=== PATIENT | male | born 1950 | race Caucasian/White ===

== ENCOUNTER 2023-12-28 05:59 | Day surgery (SDC) | payer MEDICARE, OTHER, SELFPAY ==
[2023-12-28] VITALS (11 sets, daily range): BP systolic 123–140; BP diastolic 59–72; BMI 26.3
[2023-12-28] MEDS: NSS 242 ML IV (06:45)
--- NOTE | 2023-12-28 07:16 | ITS.CL.CATH ---
[employer] - Catheterization
Cardiac Catheterization
Procedure Report:
CARDIAC CATHETERIZATION REPORT
Date of Procedure: 12/28/2023
Referring: Jarret Oakley MD
Indication: Chest pain
HEMODYNAMIC DATA
AO: 145/76
LV: 145/18
LEFT VENTRICULOGRAPHY: Normal left ventricular wall motion with EF 61%
CORONARY ANGIOGRAPHY
Dominance: Right
Left Main: Normal
LAD: 20-30% mid stenosis with otherwise mild luminal irregularities. The large first diagonal branch has 30% ostial/proximal stenosis
Circumflex: Mild luminal irregularities
RCA: Dominant vessel with 20% mid stenosis proximal to the crux with otherwise trivial luminal irregularities
Closure Device: None-the procedure was performed via the right radial artery. The Osmany's test was normal prior to the procedure.
Radiation (mGy): 133
DAP (cm2.Gy): 13.2
Fluoroscopy time: 1.5 minutes
CONCLUSIONS
1: Normal left ventricular function with EF 61%
2: Mild nonobstructive CAD as described
3. Recommend aspirin, high intensity statin, aggressive control of diabetes, and smoking cessation to reduce the risk of cardiac events
Copy to: Jarret Oakley MD, Kait Ontiveros DO ([place], [place])
Judah Valadez MD, [facility]
[2023-12-28 07:19] LABS: Glucose - Point of Care 165 mg/dl (70-99)
[2023-12-28] MEDS: LOW STRENGTH ASPIRIN 81 MG PO (09:37)
[2023-12-28] MEDS: NSS 1000 IV (09:37)
== END 2023-12-28 11:05 | disposition home or self-care (01) ==
LOC: CATH 05:59
PROVIDERS: ATTENDING PHYSICIAN Internal Medicine Cardiovascular Disease; FAMILY PHYSICIAN Family Medicine; OTHER PHYSICIAN Internal Medicine Cardiovascular Disease
DX: I25.10 Atherosclerotic heart disease of native coronary artery without angina pectoris (principal); R07.9 Chest pain, unspecified; E11.9 Type 2 diabetes mellitus without complications; F17.210 Nicotine dependence, cigarettes, uncomplicated; Z79.84 Long term (current) use of oral hypoglycemic drugs; Z79.82 Long term (current) use of aspirin
CPT/HCPCS: 82962; 93458; C1894; Q9967